=== PATIENT | female | born 1985 | race African-American/Black ===

== ENCOUNTER 2024-08-29 13:50 | Outpatient (REF) | payer SELFPAY | END 2024-08-29 13:51 | disposition home or self-care (01) | LOC: LAB 13:50 | PROVIDERS: PCP Family Medicine; Visit Provider Obstetrics & Gynecology | DX: N92.6 Irregular menstruation, unspecified (principal) | CPT/HCPCS: 88305 ==

== ENCOUNTER 2024-09-07 12:40 | Outpatient (OUT) | payer SELFPAY ==
--- NOTE | 2024-09-07 13:00 | US_ITS ---
[address] [address] Patient Name: SUNDAR GILLIS MRN: [id number] date: 1985 Sex: F Assigned Patient Location: US Current Patient Location: Accession/Order Number: [id number] Exam Date: 09/07/2024 13:01 Report Date: 09/08/2024 09:15 At the request of: GUCCI RAMIREZ Procedure: US pelvis w/ transvaginal EXAMINATION: US pelvis w/ transvaginal HISTORY: PCOS ; heavy/irregular periods COMPARISON: No relevant comparison available. TECHNIQUE: Transabdominal and/or transvaginal sonographic examination was performed as indicated by examination type. FINDINGS: UTERUS: Normal size and appearance. Incidental 1.1 cm nabothian cyst within cervix. Uterus size: 9.9 x 6.5 x 5.6 cm ENDOMETRIUM: Thin but slightly heterogeneous endometrium. 2 mm slightly hyperechoic structures; dystrophic calcification versus tiny polyp. Endometrial thickness: 8 mm RIGHT OVARY: Contains a 2.3 cm cyst. Duplex Doppler demonstrates normal waveform and flow; resistive index 0.7. Ovary size: 3.1 x 2.8 x 1.6 cm LEFT OVARY: Contains a 3.4 cm cyst. Duplex Doppler demonstrates normal waveform and flow; resistive index 0.6. Ovary size: 4.8 x 3.3 x 3.6 cm CUL-DE-SAC: Unremarkable. No significant free fluid. BLADDER: Unremarkable. OTHER: None. US/US pelvis w/ transvaginal IMPRESSION: 1. Thin but slightly heterogeneous endometrium; nonspecific. A tiny echogenic area within endometrium may represent dystrophic calcification or a 2 mm polyp. 2. Bilateral ovarian cysts favoring benign etiology. No additional follow-up recommended at this time. Electronically authenticated by: SHALINI BRAUN Date: 09/08/2024 09:15
[2024-09-07 13:54] LABS: Hematocrit 38.8 % (36.0-48.0); Hemoglobin 12.4 g/dL (12.0-16.0); Mean Corpuscular Hemoglobin 29.7 pg (26.7-34.0); Mean Platelet Volume 11.6 fL (9.5-13.5); Platelet Count 174 10^3/uL (150-450); Red Blood Count 4.17 10^6/uL (4.20-5.40); Red Cell Distribution Width 13.1 % (11.0-15.0); White Blood Count 4.5 10^3/uL (4.0-11.0)
[2024-09-07 14:28] LABS: Estimated Average Glucose 88 mg/dL; Glycohemoglobin A1C 4.7 % (4.5-6.2)
[2024-09-07 14:37] LABS: Thyroid Stimulating Hormone 2.504 uIU/mL (0.358-3.740)
[2024-09-07 14:38] LABS: Free T4 0.82 ng/dL (0.76-1.46); HCG Quantitative <1 mIU/mL
[2024-09-07 15:20] LABS: Anisocytosis 1+; Eosinophils Absolute Manual 0.04 10^3/uL (0.00-0.70); Lymphocytes Absolute Manual 1.89 10^3/uL (1.20-3.80); Monocytes Absolute Manual 0.49 10^3/uL (0.30-0.80); Segmented Neut Absolute Manual 2.07 10^3/uL (1.4-6.5)
[2024-09-08 04:08] LABS: Luteinizing Hormone(LH) 1.8 mIU/mL (.); Progesterone 0.1 ng/mL (.)
== END 2024-09-07 12:41 | disposition home or self-care (01) ==
PROVIDERS: PCP Family Medicine; Visit Provider Obstetrics & Gynecology
DX: E28.2 Polycystic ovarian syndrome (principal); N92.6 Irregular menstruation, unspecified
CPT/HCPCS: 36415; 76830; 76856; 82626; 82627; 82670; 83001; 83002; 83036; 84144; 84439; 84443; 84702; 85007; 85027

== ENCOUNTER 2024-10-18 20:27 | Outpatient (REF) | payer SELFPAY ==
--- OUTSIDE RECORDS SUMMARY | 2024-10-18 20:30 | XMS_ITS | CCD ---
Author Organization [facility] Care Team Providers Care Plastic Manager Name Role Phone TRACY CERNA Admitting Unavailable TRACY CERNA Attending Unavailable TRACY CERNA Consulting Unavailable TRACY CERNA Primary Care Unavailable Jacquelyn BERNSTEIN Attending Unavailable Jacquelyn BERNSTEIN Attending Unavailable GUCCI FRANCIS Attending Unavailable GUCCI FRANCIS Attending Unavailable NO FAMILY, PHYSICIAN Primary Care Provider Unava ilable DO Gucci Francis Attending Provider [phone] Yasmin Ayala DO Primary Care Provider NO FAMILY, PHYSICIAN Primary Care Provider Unava ilable DO Gucci Francis Attending Provider NO FAMILY, PHYSICIAN Primary Care Unavailable Gucci Francis Attending Unavailable Gucci Francis Admitting Unavailable Allergies Allergy Classification Reported Allergen(s) Allergy Type Date of Onset Reaction(s) Facility (2 sources) Unable to obtain; Translations: [Unable to obtain] Propensity to adverse reactions (disorder) [facility] Repository Medications Current Medications Medication Drug Class(es) Dates Sig (Normalized) Sig (Original) amLODIPine 10 mg oral tablet (3 sources) Dihydropyridine Calcium Channel Vincenzo take 1 tablet by mouth once daily amLODIPine (Norvasc) 10 MG tablet Take 10 mg by mouth Daily Active hydroCHLOROthiazide 12.5 mg oral tablet (3 sources) Thiazide Diuretic hydroCHLOROthi azide (HYDRODiuril) 12.5 MG tablet 1 (one) time each day at the same time Active Problems Active Problems Problem Classification Problem Date Documented Da te Episodic/Chronic Menstrual disorders (1 source) Irregular periods; Translations: [Irregular menstruation, unspecified] 08-29-2024 Chronic Other endocrine disorders (4 sources) Polycystic ovary syndrome; Translations: [Polycystic ovarian syndrome] Onset: 08-29-2024 08-29-2024 Chronic Past or Other Problems Problem Classification Problem Date Documented Da te Episodic/Chronic Other screening for suspected conditions (not mental disorders or infectious disease) (4 sources) Encounter for screening for malignant neoplasm of cervix; Translations: [ENC SCREENING MALIG NEOPLASM CERV] Onset: 03-03-2018 Episodic Results Test Name Value Interpretation Reference Range Facility ALL CBC WITH AUTO DIFFon Erythrocyte distribution width (RBC) [Ratio] 13.1 % 11.0 - 15.0 % [facility] Hematocrit (Bld) [Volume fraction] 38.8 % 36.0 - 48.0 % [facility] Hemoglobin (Bld) [Mass/Vol] 12.4 g/dL 12.0 - 16.0 g/dL [facility] Interpretation and review of laboratory results Abnormal [facility] MCH (RBC) [Entitic mass] 29.7 pg 26.7 - 34.0 pg [facility] MCHC (RBC) [Mass/Vol] 32 g/dL 29.9 - 35.2 g/dL [facility] MCV (RBC) [Entitic vol] 93 fL 81.0 - 99.0 fL [facility] Platelet mean volume (Bld) [Entitic vol] 11.6 fL 9.5 - 13.5 fL [facility] PLT 174 [facility] RBC 4.17 Low [facility] WBC 4.5 [facility] Tiago 08-30-2024 L Specimen: [id number] Received: 09/01/24 Status: LUISA Sheldon Num: [id number] Spec Type: Surgical Subm Dr: Gucci Francis Tissues: A Endometrium - Biopsy (EMBX) Procedures: HE/2, Gross/Micro L4 Age/ Patient Sex Location Account Attending Physician Albertina Tomlinson 39/F LABELL [id number] Gucci Francis SPEC NUM: [id number] RECD: 09/01/24 STATUS: LUISA SHELDON NUM: [id number] ALEXIS: 08/30/24- SUBM DR: Gucci Francis ENTERED: 09/01/24 [facility] DR: Robbi,Lab SPEC TYPE: Surgical DEPT: MARITA LECHUGA ENTERED BY: [id number] RECV BY: [id number] ORDERED: HE/2, Gross/Micro L4 ORDERED: HE/2, Gross/Micro L4 Pathological Diagnosis Endometrial curettings: Anovulatory proliferative endometrium. No evidence of hyperplasia or malignancy is identified Clinical Information Irregular menses Gross Description The specimen is received in formalin with the patient's name and EM BX and consists of an irregular shaped portion mucoid material measuring 1.0 x 1.0 x 0.6 cm in aggregate. The specimen is filtered entirely submitted in cassette A1. CPT Codes 88 305 Specimen: [id number] Received: 09/01/24 Status: LUISA Sheldon Num: [id number] Spec Type: Surgical Subm Dr: Gucci Francis Tissues: A Endometrium - Biopsy (EMBX) Procedures: DAMIR/Austen Hughes/Kati L4 Patient: Bonnie Tomlinsontrinidad Vale [id number] (Continued) Signed (signatur e on file) Chuckie Monk MD 09/02/24 [address] [facility] HCG ( test) Ql (U)o n 08-29-2024 Interpretation and review of laboratory results Normal [facility] Preg Test, Ur Negative [facility] In office Testingon 04-26-20 In office Testing [id number]#1.00TIFF Normal [facility] Registrationon 04-26-2024 Registration [id number]#1.00TIFF Normal [facility] Quantiferon-TB Plus (Client Incubated)on 04-01-2024 Gamma interferon background IA Qn (Bld) 0.07 International_Unit/ mL Invalid Interpretation Code [facility] Comment on above: Performed By: #### 1 [id number] #### [facility] [address] [place] [address] M. tuberculosis stim IFN-g by CD4+ CD8+ T-cells corrected for background Qn (Bld) 0.05 International_Unit/ mL Invalid Interpretation Code [facility] Comment on above: Performed By: #### 1 [id number] #### [facility] [address] [place] [address] M. tuberculosis stim IFN-g by CD4+ T-cells corrected for background Qn (Bld) 0.05 International_Unit/ mL Invalid Interpretation Code [facility] Comment on above: Performed By: #### 1 [id number] #### [facility] [address] [place] [address] M. tuberculosis stim IFN-g Ql (Bld) [Interp] Negative Invalid Interpretation Code Negative [facility] Comment on above: Result Comment: No r esponse to M tuberculosis antigens detected. Infection with M tuberculosis is unlikely, but high risk individuals should be considered for additional testing (ATS/IDSA/CDC Clinical Practice Guidelines, 2017). The reference range is an Antigen minus Nil result of <0.35 IU/mL. The specimen received for QuantiFERON testing was incubated by the ordering institution. Specific procedures outlined in our Directory of Services and in the package insert for the QuantiFERON Gold (In Tube) test must be followed to enable for proper stimulation of cells for the production of interferon gamma. Chemiluminescence immunoassay methodology Performed at: [facility] [id number] PhD [place] Performed By: #### 1 [id number] #### [facility] [address] [place] [address] Mitogen stimulated gamma interferon corrected for background Qn (Bld) >10.00 Invalid Interpretation Code [facility] Comment on above: Performed By: #### 1 [id number] #### [facility] [address] [place] [address] Service comment (Unsp spec) [Interp] Comment Invalid Interpretation Code [facility] Comment on above: Result Comment: Lucio tiFERON-TB Gold Plus is a qualitative indirect test for M tuberculosis infection (including disease) and is intended for use in conjunction with risk assessment, radiography, and other medical and diagnostic evaluations. The QuantiFERON-TB Gold Plus result is determined by subtracting the Nil value from either TB antigen (Ag) value. The Mitogen tube serves as a control for the test. Performed By: #### 1 [id number] #### [facility] [address] [place] [address] Hep Bs Abon 03-31-2024 HBV surface Ab Ql (S) Reactive Invalid Interpretation Code [facility] Comment on above: Result Comment: Non Reactive: Inconsistent with immunity, less than 10 mIU/mL Reactive: Consistent with immunity, greater than 9.9 mIU/mL Performed at: [facility] [id number] PhD [place] Performed By: #### 2 [id number] #### [facility] [address] [place], [place] [id number] Measles/Mumps/Rubella Immuni tyon 03-31-2024 MeV IgG IA Qn (S) 287.0 A unit/mL Invalid Interpretation Code Immune >16.4 [facility] Comment on above: Result Comment: Nega tive <13.5 Equivocal 13.5 - 16.4 Positive >16.4 Presence of antibodies to Rubeola is presumptive evidence of immunity except when acute infection is suspected. Performed By: #### 3 [id number] #### [facility] [address] [place] [address] MuV IgG IA Qn (S) 35.0 A unit/mL Invalid Interpretation Code Immune >10.9 [facility] Comment on above: Result Comment: Nega tive <9.0 Equivocal 9.0 - 10.9 Positive >10.9 A positive result generally indicates past exposure to Mumps virus or previous vaccination. Performed at: [address] [id number] PhD [place] Performed By: #### 3 [id number] #### [facility] [address] [place] [address] Rubella virus IgG Qn (S) 2.03 [IU]/mL Invalid Interpretation Code Immune >0.99 [facility] Comment on above: Result Comment: Non- immune <0.90 Equivocal 0.90 - 0.99 Immune >0.99 Performed By: #### 3 [id number] #### [facility] [address] [place] [address] Varic IgGon 03-31-2024 VZV IgG IA Qn (S) 2295 Invalid Interpretation Code Immune >165 [facility] Comment on above: Result Comment: Nega tive <135 Equivocal 135 - 165 Positive >165 A positive result generally indicates exposure to the pathogen or administration of specific immunoglobulins, but it is not indication of active infection or stage of disease. Performed at: [address] [id number] PhD [place] Performed By: #### 1 [id number] #### [facility] [address] [place] [address] Vital Signs Date Time Vital Sign Value Performing Clinician Skyla mendez 08-29-2024 13:29-0400 Body weight 85.73 kg Gucci Penny DO Work Phone: [facility] 08-29-2024 13:29-0400 Diastolic blood pressure 90 mm[Hg] Gucci Penny DO Work Phone: [facility] 08-29-2024 13:29-0400 Systolic blood pressure 146 mm[Hg] Gucci Penny DO Work Phone: [facility] Encounters Encounter Date Encounter Type Care Provider Facility Start: 10-18-2024 End: 10-18-2024 Bamboo flowsheet Gucci Penny DO Work Phone: [facility] Start: 10-18-2024 End: 10-18-2024 Bamboo flowsheet Gucci Penny DO Work Phone: [facility] Start: 09-07-2024 End: 09-07-2024 [facility] Result Encounter Gucci Penny DO Work Phone: [facility] Unsolicited Start: 09-07-2024 End: 09-07-2024 [facility] Result Encounter Gucci Penny DO Work Phone: [facility]solic[facility] Start: 08-30-2024 End: 08-30-2024 ambulatory PHYSICIAN NO [facility] Work Phone: Start: 08-30-2024 End: 08-30-2024 Departed Referred PHYSICIAN NO [facility] Path Spec [facility] Start: 08-29-2024 End: 08-29-2024 Patient encounter procedure Gucci Penny DO Work Phone: [facility] Comment on above: Irregular menses; PCOS (polycystic ovarian syndrome) Start: 08-29-2024 End: 08-29-2024 ambulatory GUCCI PENNY Not Available Start: 08-29-2024 End: 08-29-2024 Departed Referred PHYSICIAN NO [facility] Start: 07-19-2024 End: 07-19-2024 ambulatory GUCCI PENNY Not Available Start: 04-26-2024 End: 04-26-2024 ambulatory Jacquelyn BERNSTEIN Facility:[facility] Start: 03-30-2024 End: 03-31-2024 ambulatory Jacquelyn BERNSTEIN [facility] Start: 03-03-2018 End: 03-03-2018 ambulatory TRACY CERNA Facility:[facility]1 Procedures Date Procedure Procedure Detail Performing Clinician Start: 09-07-2024 ALL CBC WITH AUTO DIFF Gucci Rizzoo DO Work Phone: Start: 08-29-2024 Urine test visual color cmprsn meths Gucci Penny DO Work Phone: Plan of Treatment Date Care Activity Detail Author Start: 10-18-2024 End: 10-18-2024 Patient encounter procedure 10/18/2024 1:30 PM EST Office Visit [facility] [address] [facility] [place] [id number] Gucci Francis, DO [address], [facility] Arrived [facility] Comment on above: Arrived Start: 09-27-2024 End: 09-27-2024 Patient encounter procedure 09/27/2024 11:20 AM EST Office Visit [facility] [address] [facility] [place] [id number] Gucci Francis, DO [address] [place] [address] [facility] Start: 07-17-2024 Influenza vaccination Influenz a Vaccine (#1) [facility] Start: 2017 Screening for malign ant neoplasm of cervix [facility] Start: 2008 Screening for malign ant neoplasm of cervix Pap Smear [facility] Tissue exam Tissue exam Path ology and Cytology Routine Irregular menses Ordered: 08/29/2024 [facility] Work Phone: Comment on above: Ordered: 08/29/2024 Immunizations Immunization Date Immunization Notes Care Provider Aime snyder 09-10-2022 influenza virus vacc ine, unspecified formulation Gucci Francis DO Work Phone: [facility] Payers Date Payer Category Payer Self-pay 1985 Unknown [id number] 1957 Private Health Insurance [id number] Unknown Oma RG/HOLA [id number] Unknown [id number] Social History Date Type Detail Facility Tobacco smoking stat [facility] Unknown if ever smoked [facility] Work Phone: Start: 1985 Sex Assigned At Female [facility] Start: 08-29-2024 Tobacco smoking stat [facility] Never smoked tobacco [facility] Start: 08-29-2024 Tobacco use and exposure Smokeless tobacco non-user [facility] Start: 08-29-2024 Alcoholic beverage intake Ex-drinker (finding) [facility] Start: 08-29-2024 History of Social function [facility] Start: 08-29-2024 Tobacco use panel [facility] Start: 1985 Sex assigned at Not on file [facility] History of Present illness Narrative 08-29-2024 Leonarda Tabor LPN - 08/29/2024 1:30 PM EDT Note Date & Type Note Facility 08-29-2024 History of Presen t illness Narrative Reason for Appointment: Patient ID: Albertina Tomlinson is a 39 y.o. female who presents for Endometrial biopsy Patient presents today for Consult appointment. MEDICATIONS Current Outpatient Medications Medication Instructions amLODIPine (NORVASC) 10 mg, Oral, Daily hydroCHLOROthiazide (HYDRODiuril) 12.5 MG tablet Every 24 hours ALLERGIES No Known Allergies PROBLEMS Active Ambulatory Problems Diagnosis Date Noted No Active Ambulatory Problems Resolved Ambulatory Problems Diagnosis Date Noted No Resolved Ambulatory Problems Past Medical History: Diagnosis Date Abnormal Pap smear of cervix 2007 Bacterial vaginosis 2009 Cervical insufficiency in , antepartum 2009 Dysmenorrhea 2022 Hypertension (CMS/HCC) 2004 Menorrhagia 2022 HISTORY PAST MEDICAL HISTORY SOCIAL HISTORY Past Medical History: Diagnosis Date Abnormal Pap smear of cervix 2008 Bacterial vaginosis 2009 Cervical insufficiency in , antepartum 2009 Dysmenorrhea 2022 Hypertension (CMS/HCC) 2004 Menorrhagia 2022 Social History Tobacco Use Smoking status: Never Smokeless tobacco: Never Substance Use Topics Alcohol use: Not Currently Drug use: Never FAMILY HISTORY Family History Problem Relation Name Age of Onset Hypertension Mother Priya herrera Migraines Mother Priya herrera Hypertension Father Lamont Tomlinson Hypertension Brother Dev Hypertension Sister Nicole SURGICAL HISTORY Past Surgical History: Procedure Laterality Date CERCLAGE CERVIX 2010,2014,2016 SECTION, LOW TRANSVERSE 2017 COLPOSCOPY 2009 REVIEW OF SYSTEMS Review of Systems: Review of Systems Genitourinary: Positive for menstrual problem. OBJECTIVE Objective: Physical Exam Constitutional: Appearance: Normal appearance. She is well-developed. Genitourinary: Vulva normal. Cardiovascular: Rate and Rhythm: Normal rate and regular rhythm. Pulmonary: Effort: Pulmonary effort is normal. Breath sounds: Normal breath sounds. Abdominal: General: Bowel sounds are normal. There is no distension. Palpations: Abdomen is soft. Tenderness: There is no abdominal tenderness. There is no guarding or rebound. Musculoskeletal: General: No swelling. Normal range of motion. Right lower leg: No edema. Left lower leg: No edema. Neurological: Mental Status: She is alert and oriented to person, place, and time. Skin: General: Skin is warm and dry. Psychiatric: Mood and Affect: Mood normal. Behavior: Behavior normal. Vitals and nursing note reviewed. Exam conducted with a straw hat brim raiser operator present. Vitals: There is no height or weight on file to calculate BMI. BP: 146/90 Patient's last menstrual period was 08/12/2024. ASSESSMENT & PLAN ICD-10-CM 1. Irregular menses N92.6 POCT , urine manually resulted Tissue exam EMBX: Patient was placed in dorsal lithotomy position with feet in stirrups. A sterile speculum was placed into the vagina and the cervix was visualized. The cervix was grasped with a single tooth tenaculum. The endometrial pipette was placed through the cervix into the uterus, endometrial curettage was performed and sampling was obtained, endometrial curettings were placed in formalin, and single tooth tenaculum was removed. Excellent hemostasis was assured. All instruments were removed from vagina. Follow Up: Patient is to return to clinic for annual appointment & discuss Endometrial Bx results. Will discuss plan of care further at that time and patient to have labs and US done that was previously ordered on 07/19/24. Documented by Leonarda Tabor LPN on behalf of: Gucci Francis DO documented in this encounter [facility] Evaluation note Note Date & Type Note Facility Evaluation note No assessment information availa [facility] Work Phone: Evaluation note Note Date & Type Note Facility Evaluation note Diagnosis Irregular menses Irregular menstrual cycle PCOS (polycystic ovarian syndrome) Polycystic ovaries documented in this encounter [facility] Summary Purpose Family History No Family History Records FoundNo Family History Records FoundNo Family History Records FoundNo Family History Records FoundNo Family History Records FoundNo Family History Records FoundNo Family History Records FoundNo Family History Records Found Advance Directives No Advanced Directives Records FoundNo Advanced Directives Records FoundNo Advanced Directives Records FoundNo Advanced Directives Records FoundNo Advanced Directives Records FoundNo Advanced Directives Records FoundNo Advanced Directives Records FoundNo Advanced Directives Records Found Additional Source Comments INFORMATION SOURCE (unrecogn ized section and content) DATE CREATED AUTHOR 10/29/2022 [facility] DATE CREATED AUTHOR AUTHOR'S ORGANIZ ATION 04/01/2024 [facility] DATE CREATED AUTHOR AUTHOR'S ORGANIZ ATION 04/02/2024 [facility] DATE CREATED AUTHOR AUTHOR'S ORGANIZ ATION 04/27/2024 [facility] DATE CREATED AUTHOR AUTHOR'S ORGANIZ ATION 08/31/2024 [facility] EPIC DATE CREATED AUTHOR AUTHOR'S ORGANIZ ATION 09/06/2024 [facility] Care Teams (unrecognized sec tion and content) Team Status: Active Member Role Status Dates PHYSICIAN NO FAMILY Primary Care Provider Active Team Status: Inactive Member Role Status Dates PHYSICIAN NO FAMILY Primary Care Provider Active Start: August 30, 2024 End: August 30, 2024 Gucci Francis DO Attending Provider Active Start : August 30, 2024 End: August 30, 2024 Plastic Manager Relationship Specialty Start Date End Date Yasmin Ayala DO [address] [facility] [address] PCP - General Family Medicine 07/19/24 Team Status: Inactive Member Role Status Dates PHYSICIAN NO FAMILY Primary Care Provider Active Start: August 29, 2024 End: August 29, 2024 Gucci Francis DO Attending Provider Active Start : August 29, 2024 End: August 29, 2024 Plastic Manager Relationship Specialty Start Date End Date Yasmin Ayala DO [address] [place] [address] PCP - General Family Medicine 07/19/24 Goals (unrecognized section and content) Goals may be documented in a n alternate sectionGoals may be documented in an alternate section Reason for Visit (unrecogniz ed section and content) Reason Comments Endometrial biopsy FOR RECORDS PERTAINING TO PATIENTS WHO ARE OR HAVE BEEN ENROLLED IN A CHEMICAL DEPENDENCY/SUBSTANCEABUSE PROGRAM, SOME INFORMATION MAY BE OMITTED. This clinical summary was aggregated from multiple sources. Caution should be exercised in using it in the provision of clinical care. This summary normalizes information from multiple sources, and as a consequence, information in this document may materially change the coding, format and clinical context of patient data. In addition, data may be omitted in some cases. CLINICAL DECISIONS SHOULD BE BASED ON THE PRIMARY CLINICAL RECORDS. [employer] provides no warranty or guarantee of the accuracy or completeness of information in this document.
[2024-10-25 11:09] LABS: Age Gdln ACOG Testing Note (.); HPV Aptima Negative (Negative); IGP, Aptima HPV, rfx 16/18,45 Note (.)
== END 2024-10-18 20:28 | disposition home or self-care (01) ==
LOC: LAB 20:27
PROVIDERS: PCP Family Medicine; Visit Provider Obstetrics & Gynecology
DX: Z01.419 Encounter for gynecological examination (general) (routine) without abnormal findings (principal)
CPT/HCPCS: 87624; 88175